=== PATIENT | female | born 1965 | race African-American/Black ===

== ENCOUNTER 2021-10-30 10:02 | Emergency (ER) | payer MEDICAID ==
[~2021-10-30] VITALS: Ht 172.7 cm; Wt 104.0 kg
[2021-10-30 11:58] LABS: CHLORIDE 111 mEq/L (98-107)
[2021-10-30 12:01] LABS: BASOPHILS % 0.3 % (0.0-2.0); EOSINOPHILS % 1.2 % (0.0-5.0); HEMATOCRIT. 38.9 % (36.0-48.0); HEMOGLOBIN. 12.7 g/dL (12.0-16.0); LYMPHOCYTES % 29.9 % (20.0-50.0); MEAN CORPUSCULAR HEMOGLOBIN 31.5 pg (28.0-32.0); MEAN CORPUSCULAR VOLUME 96.8 fL (81.0-99.0); MEAN PLATELET VOLUME 8.2 fl (7.4-10.4); MONOCYTES % 7.9 % (2.0-8.0); NEUTROPHILS % 60.7 % (40.0-76.0); PLATELET 118 x1000/uL (130-400); PROTHROMBIN TIME 11.2 sec (9.6-11.0); RED BLOOD CELL COUNT 4.02 mill/uL (4.2-5.4); RED CELL DISTRIBUTION WIDTH 12.2 % (11.6-14.6)
[2021-10-30 14:31] VITALS: BP 144/80
== END 2021-10-30 14:41 | disposition home or self-care (01) ==
LOC: ER 10:02
DX: R60.0 Localized edema (principal); M06.9 Rheumatoid arthritis, unspecified; F41.9 Anxiety disorder, unspecified; I50.9 Heart failure, unspecified; Z87.01 Personal history of pneumonia (recurrent); Z90.49 Acquired absence of other specified parts of digestive tract; Z98.890 Other specified postprocedural states
CPT/HCPCS: 36415; 80053; 83880; 85025; 93971; 99284

== ENCOUNTER 2022-07-13 19:58 | Emergency (ER) | payer MEDICAID, OTHER ==
[~2022-07-13] VITALS: Ht 172.7 cm; Wt 118.0 kg
[2022-07-13 21:20] VITALS: BP 170/78
[2022-07-13] MEDS ORDERED: ACETAMINOPHEN 500MG TABLET PO ONE (23:15)
[2022-07-14] LABS: BASOPHILS % 0.3 % (0.0-2.0); HEMATOCRIT. 40.9 % (36.0-48.0); HEMOGLOBIN. 13.6 g/dL (12.0-16.0); LYMPHOCYTES % 23.7 % (20.0-50.0); MEAN CORPUSCULAR HEMOGLOBIN 31.6 pg (28.0-32.0); MEAN CORPUSCULAR VOLUME 94.7 fL (81.0-99.0); MEAN PLATELET VOLUME 8.3 fl (7.4-10.4); MONOCYTES % 8.1 % (2.0-8.0); NEUTROPHILS % 64.9 % (40.0-76.0); PLATELET 149 x1000/uL (130-400); RED BLOOD CELL COUNT 4.31 mill/uL (4.2-5.4); RED CELL DISTRIBUTION WIDTH 12.6 % (11.6-14.6)
[2022-07-14 00:25] LABS: CHLORIDE 100 mEq/L (98-107)
[2022-07-14] MEDS ORDERED: ACET-2708 MT (00:47)
== END 2022-07-14 01:29 | disposition home or self-care (01) ==
LOC: ER 19:58
DX: I77.6 Arteritis, unspecified (principal); I10 Essential (primary) hypertension; Z90.49 Acquired absence of other specified parts of digestive tract; Z87.19 Personal history of other diseases of the digestive system
CPT/HCPCS: 36415; 71045; 80053; 83880; 85025; 93970; 99285

== ENCOUNTER 2022-12-28 14:06 | Emergency (ER) | payer MEDICAID, OTHER ==
[~2022-12-28] VITALS: Ht 172.7 cm; Wt 114.0 kg
[~2022-12-28 14:06] MED LIST: ACET-2708 MT; CEPH500C2 MT; GABA-529 MT; IBUP-2029 MT
[2022-12-28 14:25] VITALS: BP 172/95
[2022-12-28] MEDS ORDERED: ACET-2708 MT (15:52)
[2022-12-28] MEDS ORDERED: IBUP-2028 MT (15:52)
== END 2022-12-28 16:49 | disposition home or self-care (01) ==
LOC: ER 14:06
DX: M54.50 Low back pain, unspecified (principal); M19.90 Unspecified osteoarthritis, unspecified site; I10 Essential (primary) hypertension; K76.9 Liver disease, unspecified; Z90.49 Acquired absence of other specified parts of digestive tract
CPT/HCPCS: 99282

== ENCOUNTER 2023-04-15 19:32 | Emergency (ER) | payer MEDICAID, OTHER ==
[~2023-04-15] VITALS: Ht 172.7 cm; Wt 105.0 kg
[~2023-04-15 19:32] MED LIST changes: +IBUP-2028 MT
[2023-04-15 19:45] VITALS: BP 173/97
[2023-04-15 20:48] LABS: BASOPHILS % 0.2 % (0.0-2.0); EOSINOPHILS % 0.7 % (0.0-5.0); HEMATOCRIT. 45.2 % (36.0-48.0); HEMOGLOBIN. 15.4 g/dL (12.0-16.0); LYMPHOCYTES % 28.1 % (20.0-50.0); MEAN CORPUSCULAR HEMOGLOBIN 31.6 pg (28.0-32.0); MEAN CORPUSCULAR VOLUME 92.9 fL (81.0-99.0); MEAN PLATELET VOLUME 8.9 fl (7.4-10.4); PLATELET 151 x1000/uL (130-400); RED BLOOD CELL COUNT 4.86 mill/uL (4.2-5.4); RED CELL DISTRIBUTION WIDTH 12.2 % (11.6-14.6)
[2023-04-15 21:58] LABS: CLARITY URINE CLEAR (CLEAR); COLOR URINE YELLOW (YELLOW); KETONES URINE NEGATIVE (NEGATIVE); LEUKOCYTE ESTERASE URINE NEGATIVE (NEGATIVE); NITRITE URINE NEGATIVE (NEGATIVE); OCCULT BLOOD URINE NEGATIVE (NEGATIVE); PROTEIN URINE NEGATIVE (NEGATIVE); SPECIFIC GRAVITY URINE 1.005 (1.005-1.030); UROBILINOGEN URINE 0.2 E.U./dL (0.2-1.0)
[2023-04-15 22:15] LABS: CHLORIDE 104 mEq/L (98-107)
[2023-04-15 22:26] LABS: BETA HYDROXYBUTYRATE < 0.1 mMol/L (0.0-0.3)
[2023-04-15] MEDS ORDERED: INSULIN REGULAR (HUMULIN R) 300UNITS/3ML VIAL SUBCUT NR (23:15)
[2023-04-16 00:18] LABS: BG BASE EXCESS -2.4 mmol/L (-2.0-2.0); BG CARBOXYHEMOGLOBIN 1.3 % (0.5-1.5); BG DEOXYHEMOGLOBIN 2.9 % (0.0-5.0); BG FRACTION INSPIRED OXYGEN 21; BG HCO3 ACT 21.2 mmol/L (22.0-26.0); BG METHEMOGLOBIN 0.2 % (0.0-1.5); BG OXYGEN SATURATION 97.1 % (92.0-98.5); BG OXYHEMOGLOBIN 95.6 % (94.0-97.0); BG PH 7.413 (7.350-7.450); BG PO2 95.2 mmHg (75.0-100.0); BG SAMPLE SITE RIGHT RADIAL; BG TOTAL HEMOGLOBIN 16.6 g/dL (12.0-18.0); BG VENT MODE ROOM AIR
[2023-04-16 00:56] LABS: CHLORIDE 104 mEq/L (98-107)
[2023-04-16] MEDS ORDERED: MELA5TAB19 MT (01:09)
== END 2023-04-16 01:27 | disposition home or self-care (01) ==
LOC: ER 19:32
DX: R73.9 Hyperglycemia, unspecified (principal); I10 Essential (primary) hypertension; Z90.49 Acquired absence of other specified parts of digestive tract
CPT/HCPCS: 36415; 36600; 71045; 80048; 80053; 81003; 82010; 82375; 82805; 82962; 85025; 93005; 96372; 99285; J1815

== ENCOUNTER 2025-06-09 18:08 | Emergency (ER) | payer MEDICAID, OTHER ==
[~2025-06-09] VITALS: Ht 167.6 cm; Wt 70.0 kg
[~2025-06-09 18:08] MED LIST changes: +ALPR-392 PO; +BUPR1FIL3 SL; +CELE-116 MT; -CEPH500C2 MT; +GABA-290 PO; -GABA-529 MT; +GLIM2TAB30 PO; +LOSA50TA41 PO; +QUET300T20 MT
[2025-06-09 18:23] VITALS: O2SAT 100
[2025-06-09] MEDS ORDERED: METOCLOPRAMIDE HCL 10MG/2ML VIAL IV STA (18:46)
[2025-06-09] MEDS: ZIPRASIDONE MESYLATE 20MG/VIAL IM ONE (21:10)
[2025-06-09] MEDS: ONDANSETRON 4MG ODT PO ONE (21:15)
[2025-06-09 22:26] VITALS: BP 170/92; PULSE 63; RESP 11; TEMP 36.6; O2SAT 99
[2025-06-09] MEDS: LORAZEPAM 2MG/ML UD SYRINGE IM SCH (22:34)
[2025-06-09 23:34] LABS: BASOPHILS % 0.4 % (0.0-2.0); EOSINOPHILS % 0.6 % (0.0-5.0); HEMATOCRIT. 42.4 % (36.0-48.0); HEMOGLOBIN. 14.2 g/dL (12.0-16.0); LYMPHOCYTES % 24.4 % (20.0-50.0); MEAN PLATELET VOLUME 9.0 fl (7.4-10.4); MONOCYTES % 4.4 % (2.0-8.0); NEUTROPHILS % 70.2 % (40.0-76.0); PLATELET 186 x1000/uL (130-400); RED BLOOD CELL COUNT 4.47 mill/uL (4.2-5.4); RED CELL DISTRIBUTION WIDTH 12.4 % (11.6-14.6)
[2025-06-09] MEDS: METOCLOPRAMIDE HCL 10MG/2ML VIAL IV NR (23:48)
[2025-06-09 23:49] LABS: CREATININE 0.8 mg/dL (0.6-1.0); INR 1.0
[2025-06-09] MEDS: SODIUM CHLORIDE 0.9% 1,000 ML IV ONE (23:49)
[2025-06-09 23:50] LABS: ETHANOL BLOOD < 10 mg/dL (<10); UREA NITROGEN BLOOD 9 mg/dL (9-23)
[2025-06-09 23:51] LABS: ASPARTATE AMINOTRANSFERASE 59 IU/L (<34)
[2025-06-09 23:52] LABS: BILIRUBIN DIRECT 0.2 mg/dL (<=3.0); BILIRUBIN TOTAL 0.7 mg/dL (0.1-1.0)
[2025-06-09 23:53] LABS: PROTEIN TOTAL 8.1 g/dL (6.0-8.3)
[2025-06-10 01:01] LABS: CREATININE 0.6 mg/dL (0.6-1.0); UREA NITROGEN BLOOD 9 mg/dL (9-23)
== END 2025-06-09 22:22 | disposition short-term general hospital (02) ==
LOC: ER 18:08
DX: R41.82 Altered mental status, unspecified (principal); E11.9 Type 2 diabetes mellitus without complications; I10 Essential (primary) hypertension; Z79.1 Long term (current) use of non-steroidal anti-inflammatories (NSAID); Z79.899 Other long term (current) drug therapy
CPT/HCPCS: 80076; 80048; 80320; 82140; 84443; 85025; 85610; 36415; 70450; 93005; 96361; 96372; 96374; 99285; J2060; J2765; J3486; J7030; Z7610 ×4; Q0162; G0480

== ENCOUNTER 2025-08-21 20:11 | Emergency (ER) | payer MEDICAID ==
[~2025-08-21] VITALS: Ht 172.7 cm; Wt 77.0 kg
[~2025-08-21 20:11] MED LIST changes: +IBUP-1455 MT; -IBUP-2029 MT
[2025-08-21 20:13] VITALS: O2SAT 100
[2025-08-21 21:20] LABS: BASOPHILS % 0.7 % (0.0-2.0); EOSINOPHILS % 2.9 % (0.0-5.0); HEMATOCRIT. 37.8 % (36.0-48.0); HEMOGLOBIN. 12.8 g/dL (12.0-16.0); LYMPHOCYTES % 36.2 % (20.0-50.0); MEAN PLATELET VOLUME 7.7 fl (7.4-10.4); MONOCYTES % 6.6 % (2.0-8.0); NEUTROPHILS % 53.6 % (40.0-76.0); PLATELET 207 x1000/uL (130-400); RED BLOOD CELL COUNT 3.97 mill/uL (4.2-5.4); RED CELL DISTRIBUTION WIDTH 12.4 % (11.6-14.6)
[2025-08-21 21:35] LABS: CREATININE 0.7 mg/dL (0.6-1.0)
[2025-08-21 21:36] LABS: UREA NITROGEN BLOOD 14 mg/dL (9-23)
[2025-08-21 21:37] LABS: ASPARTATE AMINOTRANSFERASE 161 IU/L (<34)
[2025-08-21 21:38] LABS: BILIRUBIN DIRECT 0.2 mg/dL (<=3.0); BILIRUBIN TOTAL 0.6 mg/dL (0.1-1.0); PROTEIN TOTAL 6.9 g/dL (6.0-8.3)
[2025-08-21 21:58] LABS: CLARITY URINE CLEAR (CLEAR); COLOR URINE YELLOW (YELLOW); GLUCOSE URINE NEGATIVE (NEGATIVE); KETONES URINE NEGATIVE (NEGATIVE); LEUKOCYTE ESTERASE URINE NEGATIVE (NEGATIVE); NITRITE URINE NEGATIVE (NEGATIVE); OCCULT BLOOD URINE NEGATIVE (NEGATIVE); PH URINE 5.5 (4.5-8.0); PROTEIN URINE NEGATIVE (NEGATIVE); SPECIFIC GRAVITY URINE 1.014 (1.005-1.030); UROBILINOGEN URINE 0.2 E.U./dL (0.2-1.0)
[2025-08-21 22:29] VITALS: BP 111/65; PULSE 69; RESP 16; TEMP 36.7; O2SAT 95
[2025-08-21] MEDS ORDERED: ONDA4TAB50 MT (22:43)
[2025-08-21] MEDS ORDERED: PANT40SU MT (22:43)
== END 2025-08-21 23:04 | disposition home or self-care (01) ==
LOC: ER 20:11 → CMPBEDREQ 08-22 08:22
DX: K29.70 Gastritis, unspecified, without bleeding (principal); K74.60 Unspecified cirrhosis of liver; E11.9 Type 2 diabetes mellitus without complications; F31.9 Bipolar disorder, unspecified; I10 Essential (primary) hypertension; Z90.49 Acquired absence of other specified parts of digestive tract; Z79.1 Long term (current) use of non-steroidal anti-inflammatories (NSAID); Z79.899 Other long term (current) drug therapy
CPT/HCPCS: 36415; 74176; 80048; 80076; 81003; 85025; 99284

== ENCOUNTER 2025-08-30 12:34 | Emergency (ER) | payer MEDICAID ==
[~2025-08-30] VITALS: Ht 172.7 cm; Wt 77.0 kg
[~2025-08-30 12:34] MED LIST changes: +ONDA4TAB50 MT; +PANT40SU MT
[2025-08-30 12:36] VITALS: TEMP 36.9; O2SAT 99
[2025-08-30] MEDS ORDERED: IBUP-2028 MT (15:36)
[2025-08-30] MEDS ORDERED: CAPS42.514 TP (15:36)
[2025-08-30] MEDS: LIDOCAINE 5% PATCH TOP SCH (15:43)
[2025-08-30] MEDS: KETOROLAC 30MG/ML VIAL IM ONE (15:43)
[2025-08-30 16:09] VITALS: BP 136/78; PULSE 69; RESP 16; O2SAT 100
== END 2025-08-30 16:17 | disposition home or self-care (01) ==
LOC: ER 12:34
DX: G89.29 Other chronic pain (principal); M54.50 Low back pain, unspecified; I10 Essential (primary) hypertension; E11.9 Type 2 diabetes mellitus without complications; F31.9 Bipolar disorder, unspecified; M19.90 Unspecified osteoarthritis, unspecified site; Z79.1 Long term (current) use of non-steroidal anti-inflammatories (NSAID); Z79.899 Other long term (current) drug therapy
CPT/HCPCS: 82962; 99283; J1885